=== PATIENT | male | born 1980 | race Two or more races ===

== ENCOUNTER → 2016-11-11 | Outpatient (CLI) | payer OTHER ==
[~2016-11-11] MED LIST: GADOBUTROL 7.5 MMOL/7.5 ML VIAL IV ONE
--- NOTE | 2016-11-11 21:59 | RAD ---
MRI of the lumbar spine without and with contrast 11/03/2016 CLINICAL HISTORY: Low back pain with bilateral leg pain, right greater than left. TECHNIQUE: Unenhanced T1-weighted and T2-weighted sagittal and axial and inversion recovery sagittal images of the lumbar spine were obtained. After the intravenous administration of 7.5 cc of Gadavist, enhanced T1 weighted sagittal and axial images of the lumbar spine were obtained. FINDINGS: Minimal S-shaped curvature of the thoracolumbar spine is seen. The morphology and signal characteristics of all the disks of all of the lumbar spine are within normal limits. Degenerative signal changes are seen within the marrow surrounding the L3-4 disc space, anteriorly. The conus medullaris is within normal limits in morphology, position, and signal characteristics. No area of abnormal contrast enhancement is seen. The L1-2 disc space is within normal limits. At the L2-3 disc space there is a very mild generalized disc bulge. Degenerative changes are seen involving the facet joints bilaterally. There is mild ligamentum flavum hypertrophy bilaterally. There is prominence of the posterior epidural fat. These findings when combined result in very mild central spinal canal stenosis. No neural foraminal stenosis is seen. At the L3-4 disc space there is a mild generalized disc bulge. This is slightly eccentric to the left. Degenerative changes are seen involving the facet joints bilaterally. There is mild ligamentum flavum hypertrophy bilaterally. There is prominence of the posterior epidural fat. These findings when combined result in mild central spinal canal stenosis. No neural foraminal stenosis is seen. At the L4-5 disc space there is a mild generalized disc bulge. Degenerative changes are seen involving the facet joints bilaterally. There is mild ligamentum flavum hypertrophy bilaterally. There is prominence of the posterior epidural fat. These findings when combined result in mild left greater than right central spinal canal stenosis. No neural foraminal stenosis is seen. At the L5-S1 disc space there is a mild generalized disc bulge. Degenerative changes are seen involving the facet joints bilaterally. These findings do not result in significant central spinal canal or neural foraminal stenosis. IMPRESSION: The changes of degenerative disc disease are seen involving the lumbar spine. These findings result in very mild central spinal canal stenosis at L2-3, mild central spinal canal stenosis at L3-4 and mild left greater than right central spinal canal stenosis at L4-5. No neural foraminal stenosis is seen. Electronically signed by: Allen Bazzi MD (11/11/2016 5:26 PM)
== END | disposition home or self-care (01) ==
LOC: MRI 15:42
PROVIDERS: ATTEND Family Medicine
DX: M48.06 Spinal stenosis, lumbar region (principal); M51.36 Other intervertebral disc degeneration, lumbar region; M47.896 Other spondylosis, lumbar region; M43.8X5 Other specified deforming dorsopathies, thoracolumbar region; M24.28 Disorder of ligament, vertebrae
CPT/HCPCS: 72158; A9585

== ENCOUNTER → 2016-12-29 | Outpatient (CLI) | payer OTHER ==
[~2016-12-29] MED LIST changes: +CYCL10TA2 PO; -GADOBUTROL 7.5 MMOL/7.5 ML VIAL IV ONE; +HYDR-2762 PO; +IOHEXOL 180 MG/ML 10 ML VIAL. ONE; +methylPREDNISolone ACETATE 40 MG/ML VIAL. ONE; +methylPREDNISolone ACETATE 80 MG/ML VIAL. ONE
--- NOTE | 2016-12-29 17:46 | PAIN ---
DATE OF SERVICE: 12/29/2016 INITIAL CONSULTATION FOR PAIN CLINIC CHIEF COMPLAINT: Low back and right lower extremity pain. HISTORY OF PRESENT ILLNESS: This is a 36-year-old male, who presents with a history of pain for about a year over the past year. It has been getting worse about 4 months ago. It has become much worse in the low back and right lower extremity, mostly in the posterior gluteus, across the low back, right thigh, anterior medial thigh, into the medial lower leg, into the ankle, but not into the foot. The patient reports it is much worse on the right than the left, some pain in the left low back, but not into the left leg. The patient reports he has not had any current treatments or therapies. He has been taking some pain medication, hydrocodone, which helps, but reports it is still not decreasing the pain significantly, more than about 20%. The patient reports no motor or sensory deficits, but still significant pain in the low back and right leg. It has been constant, aching, shooting pain, gets worse as the day goes on and awakens him from sleep at night, does not affect his bowel or bladder control or his ability to walk, but he is getting very easily fatigued in the right lower extremity. The patient did have an MRI scan of the lumbar spine dated 11/11/2016, showing degenerative disk changes throughout the L2-L3, L3-L4, L4-L5, and L5-S1 levels with disk bulge at L4-L5, L3-L4, and L5-S1. L4-L5 shows prominence of posterior epidural fat ____ mild left greater than right central spinal stenosis. L5-S1 showed some degenerative changes as well. L3-L4 shows slightly eccentric generalized disk bulge to the left with a mild central spinal canal stenosis, but no neural foraminal stenosis at that level. The patient again has had no other therapies, no chiropractic and no physical therapy. He does some stretching on his own at home. He has a very active job, but he has not had any actual training or treatment. PAST MEDICAL HISTORY: Significant for only the current back pain. PAST SURGICAL HISTORY: No previous surgeries, otherwise in a very good health. CURRENT MEDICATIONS: Include cyclobenzaprine and hydrocodone. ALLERGIES: The patient has no known drug allergies. FAMILY HISTORY: Significant for no major medical problems or conditions that he is aware of. 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 He does not smoke and does not drink alcohol frequently, about twice a month on average. He is and has three children that live in [place]. He is going to see them in about 1 week or a week and half. REVIEW OF SYSTEMS: The patient's review of systems is positive for those items mentioned in the history of present illness. All systems reviewed and otherwise, negative. It is complete, full and well documented on the patient's chart. PHYSICAL EXAMINATION: VITAL SIGNS: Blood pressure 120/84, pulse 64, respirations 18, temperature 98.3 degree Fahrenheit, height 5 feet 7 inches, weighs 195 pounds. GENERAL: The patient is awake, alert, oriented, appropriate, very pleasant demeanor. HEENT: His head shows normocephalic, atraumatic. Extraocular movements are intact and symmetrical. Oral cavity, mucous membranes are moist and pink. Dentition is intact. NECK: Shows anterior throat is supple without palpable lymphadenopathy noted. Swallow reflex is symmetrical. CHEST: Shows normal on inspection. Breath sounds are clear to auscultation bilaterally. HEART: Shows S1 and S2 clear. No murmurs are auscultated. ABDOMEN: Soft, nontender, nondistended. No palpable organomegaly is noted. No rebound or guarding demonstrated. BACK: Shows spine grossly in the midline. Normal appearing thoracic kyphosis and lumbar lordotic curvature. Lumbar paraspinous muscle shows some ____ with inspection. On palpation, shows only very mild tenderness in the lower lumbar distribution. Paraspinous muscles are normal in appearance. No trigger points. No radiation of pain. No tenderness over his spinous processes, sacrum, or sacroiliac regions. The patient has good rotational motion of the lumbar spine, both laterally greater than 10 degrees, right and left full extension greater than 10 degrees, forward flexion 45 degrees without significant pain reported. EXTREMITIES: Lower extremities: Show deep tendon reflexes are 2+ and patellar 1+, tendo calcaneus tendons are equal. Motor exam is strong with 5/5 dorsiflexion, extension, quadriceps and hamstring flexion symmetrical. Peripheral pulses are 2+ in posterior tibial and dorsalis pedis pulses. No peripheral edema is noted. No clubbing, no cyanosis. Lower extremities are warm and dry to touch, equal in color and appearance. Straight leg raise is noted to be mildly positive on the right side at about 45 degrees. Leg raise has been decreased in the flexion. Left side is negative. Gaenslen's and Omar's maneuvers are negative bilaterally. The patient is able stand and stand on toes without loss of balance or difficulties. Able to walk without difficulty as well without assistive devices. He is not having any antalgic gait or favoring right or left lower extremities with ambulation. IMPRESSION: 1. This is a 36-year-old male with approximately 1 year history of low back and right lower extremity pain, worse over the past 4 months in radicular fashion. 2. MRI scan of the lumbar spine as noted. PLAN: Options were discussed with the patient including conservative medical management, physical therapy, interventional techniques. He would like to pursue interventional techniques. We discussed a lumbar epidural steroid injection using description as well as anatomical models to describe the procedure. Risks were then discussed including, but not limited to bleeding, infection, possibility of epidural hematoma and subsequent neurologic compromise, dural puncture, headaches, spinal cord and/or nerve damage, side effects of steroid medication and poor results regarding pain control. The patient understands and wishes to proceed. The patient will return to the clinic in approximately 2 weeks for followup. He was counseled as to return appointment, activity level, and side effects to be aware of. DIAGNOSES: Lumbar radiculopathy with lumbar degenerative disk disease. PROCEDURE: Lumbar epidural steroid injection, in translaminar approach at the L4-L5 level using C-arm fluoroscopic guidance under sterile prep and drape using local anesthetic. Medication injected a total of 120 mg Depo-Medrol plus 10 mL of preservative-free normal saline and 2 mL of Isovue contrast. CONDITION AT DISCHARGE: Stable. The patient tolerated procedure well and had no complications. DONNIE DE LA CRUZ MD DR: MARY/delio JOB#: [id number] / [id number] WAQAR Seals MD
== END | disposition home or self-care (01) ==
LOC: PNCL 10:08
PROVIDERS: ATTEND Anesthesiology
DX: M51.16 Intervertebral disc disorders with radiculopathy, lumbar region (principal)
CPT/HCPCS: 62323; J1030; J1040

== ENCOUNTER → 2017-02-01 | Outpatient (CLI) | payer OTHER ==
--- NOTE | 2017-02-02 01:22 | PAIN ---
DATE OF SERVICE: 02/01/2017 DIAGNOSIS: Lumbar radiculopathy with lumbar degenerative disk disease. HISTORY OF PRESENT ILLNESS: The patient is a 36-year-old male who returns for followup status post lumbar epidural steroid injection x 1. The patient reports 85% improvement after the first injection with pain still in the low back and right leg, but returning to moderate extent. Initially did very well after a few days until the first week and a half, the patient reports pain returning now to moderate extent in the low back, right lower extremity, posterior gluteus and thigh, posterior calf as well. The pain in the back is much improved. The patient reports the pain is a 7 on a scale of 10 at its worst, least is 1 on averages of 1. The patient reports it is dull and aching, sometimes shooting with some stabbing pain, but mostly staying in the low back. The patient reports no new motor or sensory deficits, no new bowel or bladder incontinence or other complaints. The patient reports it does not wake him from sleep very often, very unusual if it does, he can reposition and get back to sleep. PHYSICAL EXAMINATION: VITAL SIGNS: Today, the patient's blood pressure 120/76, pulse 58, respirations 16, temperature is 99.4 degrees Fahrenheit. Height is 5 feet 7 inches, weighs 195 pounds. GENERAL: The patient is awake, alert, oriented, appropriate, very pleasant demeanor. HEENT: Head shows normocephalic, atraumatic. Extraocular movements are intact, symmetrical. Oral cavity, mucous membranes are moist and pink. Dentition is intact. NECK: Shows anterior throat supple without palpable lymphadenopathy noted. Swallow reflex is symmetrical. CHEST: Normal on inspection. Breath sounds clear to auscultation bilaterally. HEART: Shows S1 and S2 clear. ABDOMEN: Soft, nontender, nondistended. No palpable organomegaly. No rebound or guarding demonstrated. BACK: Shows spine grossly in the midline. Lumbar paraspinous musculature shows some moderate tenderness with palpation, but is symmetrical on inspection with rotational motion, shows full rotation without difficulty including extension and flexion. EXTREMITIES: The patient's lower extremities show deep tendon reflexes 2+ in the patellar and 1+ tendo-calcaneus tendons. Motor exam is strong with 5/5 dorsiflexion, extension, quadriceps and hamstring flexion equal. Peripheral pulses are 2+ posterior tibia. No peripheral edema is noted. Options were discussed with the patient and the patient's old chart was reviewed and his current medication regimen updated. Current review of systems updated today as well. We will proceed with a second lumbar epidural steroid injection today with fluoroscopic guidance. Risks were again discussed including, but not limited to bleeding, infection, possibility of epidural hematoma and subsequent neurologic compromise, dural puncture, headaches, spinal cord and/or nerve damage, side effects of steroid medication and poor results regarding pain control. The patient understands and wishes to proceed. The patient will return to clinic in approximately 2 weeks for followup. He was counseled on return appointment, activity level, and side effects to be aware of. DIAGNOSIS: Lumbar radiculopathy with lumbar degenerative disk disease. PROCEDURE: Lumbar epidural steroid injection in translaminar approach at the L4-L5 level using C-arm fluoroscopic guidance under sterile prep and drape using local anesthetic. Medication injected is a total of 120 mg Depo-Medrol plus total of 10 mL of preservative-free normal saline and 2 mL of Isovue for contrast. CONDITION AT DISCHARGE: Stable. The patient tolerated the procedure well, and had no complications. DONNIE DE LA CRUZ MD DR: MARY/delio JOB#: [id number] / [id number]
== END | disposition home or self-care (01) ==
LOC: PNCL 13:13
PROVIDERS: ATTEND Anesthesiology
DX: M51.16 Intervertebral disc disorders with radiculopathy, lumbar region (principal)
CPT/HCPCS: 62323; J1030; J1040

== ENCOUNTER → 2017-04-06 | Outpatient (CLI) | payer OTHER ==
[~2017-04-06] MED LIST changes: -IOHEXOL 180 MG/ML 10 ML VIAL. ONE; -methylPREDNISolone ACETATE 40 MG/ML VIAL. ONE; -methylPREDNISolone ACETATE 80 MG/ML VIAL. ONE
--- NOTE | 2017-04-06 17:58 | PAIN ---
DATE OF SERVICE: 04/06/2017 DIAGNOSES: Lumbar radiculopathy with lumbar degenerative disk disease. HISTORY OF PRESENT ILLNESS: The patient is a 36-year-old male who returns for followup status post lumbar epidural steroid injection x 2, most recently on 02/01/2017. The patient did well with about 50% improvement overall with the injection, the first one was about 85% improvement. Again, it has been about 2 months since his last injection. The patient reports the pain returned after about 3 weeks or so in the low back radiating to posterior gluteus, posterior lateral thigh, lateral anterior thigh and groin on the right side with some constant pain in the lower leg on the right side as well as medial and posterior aspect. The patient reports it is worse with driving at work as he is in a vehicle that has a poor suspension with a very rough bouncing movement he describes making his pain worse and also walking, standing, change in positions. The patient reports it is better with lying down, does not awaken him from sleep at night. It is better with sitting or lying down as long as he is not in the vehicle, he described at work. The patient reports his pain is 7 on a scale of 10 at its worst, 6 on average and a 2 on a scale of 10 at its least, is a 6 today. The patient reports it is aching, burning, dull, also some tight shooting pain in the right leg and becoming more severe, more constant. The patient reports no new motor or sensory deficits, no new bowel or bladder incontinence or other complaints. PHYSICAL EXAMINATION: VITAL SIGNS: Today, the patient's blood pressure is 121/79, pulse 62, respirations 18, temperature 97.7 degrees Fahrenheit, weight is 196 pounds. GENERAL: The patient is awake, alert, oriented, appropriate, very pleasant demeanor. HEENT: Head shows normocephalic, atraumatic. Extraocular movements are intact, symmetrical. Oral cavity: Mucous membranes are moist and pink. Dentition is intact. NECK: Shows anterior throat supple without palpable lymphadenopathy noted. Swallow reflex is symmetrical. CHEST: Shows normal with inspection. Breath sounds are clear to auscultation bilaterally. HEART: Shows S1, S2 clear. No murmurs auscultated. ABDOMEN: Soft, nontender, nondistended. No palpable organomegaly is noted. No rebound or guarding demonstrated. BACK: Shows spine grossly in midline. Normal appearing thoracic kyphosis and lumbar lordotic curvature. Lumbar paraspinous muscle shows symmetrical on inspection, but only moderate palpation, tenderness bilaterally in the lower lumbar distribution. The patient reports no tenderness with rotational motion of lumbar spine, both laterally as well as extension and flexion which is performed fully greater than 10 degrees right and left, extension 10 degrees, forward flexion 45 degrees without difficulty. LOWER EXTREMITIES: Show deep tendon reflexes at 2+ in the patellar and tendo calcaneus tendons are 1+. Motor exam is strong with 5/5 dorsiflexion, extension, quadriceps and hamstring flexion and symmetrical. The patient has a mild positive straight leg raise on the right at about 40-45 degrees, which is decreased with knee flexion, left side is negative. Peripheral pulses are 1+ posterior tibial and dorsalis pedis pulses. No peripheral edema is noted. No clubbing, no cyanosis. Options were discussed with the patient. The patient's old chart was reviewed as his current medication regimen and updated. Current review of systems updated today as well. We will preauthorize the patient for right third lumbar epidural steroid injection for the right radiculopathy in the L4-L5 level of dermatome on the right. The patient was given Medrol Dosepak with instructions, side effects to be aware of and will not take this in the meantime and have the patient return to clinic in approximately 1 week to plan on third lumbar epidural steroid injection at that time. DONNIE DE LA CRUZ MD DR: MARY/delio JOB#: [id number] / [id number]
== END | disposition home or self-care (01) ==
LOC: PNCL 12:25
PROVIDERS: ATTEND Anesthesiology
DX: M51.16 Intervertebral disc disorders with radiculopathy, lumbar region (principal)
CPT/HCPCS: 99212

== ENCOUNTER → 2017-05-21 | Outpatient (CLI) | payer OTHER ==
[~2017-05-21] MED LIST changes: -CYCL10TA2 PO; -HYDR-2762 PO; +IOHEXOL 180 MG/ML 10 ML VIAL.; +methylPREDNISolone ACETATE 40 MG/ML VIAL.; +methylPREDNISolone ACETATE 80 MG/ML VIAL.
== END | disposition home or self-care (01) ==
LOC: PNCL 09:56
DX: M51.16 Intervertebral disc disorders with radiculopathy, lumbar region (principal)
CPT/HCPCS: 62323; J1030; J1040